=== PATIENT | male | born 1975 | race Caucasian/White ===

== ENCOUNTER 2018-05-14 08:51 | Emergency (ER) | payer BC ==
--- NOTE | 2018-05-14 09:19 | EDM.PDOC ---
ED HPI GENERAL MEDICAL PROBLEM - General Stated Complaint: CHEST PAIN Time Seen by Provider: 05/14/18 09:00 - History of Present Illness INITIAL COMMENTS - FREE TEXT/NARRATIVE: pt c/o dull right sided non radiating chest pain, worsened with movement and deep breathing since yesterday morning at times he feels it very sharp, pt denies cough SOB or any other associated res or CV sx , denies also leg swelling and pain also Hx of truama and Hx of DVT. right side chest Pain Score (Numeric/FACES): 2 - Related Data Allergies Allergy/AdvReac Type Severity Reaction Status Date / Time No Known Allergies Allergy Verified 05/14/18 09:22 Home Meds: Home Meds . [Unable to Verify Home Med List] 05/14/18 [History] ED ROS GENERAL - Review of Systems Review Of Systems: See Below Constitutional: Reports: No Symptoms HEENT: Reports: No Symptoms Respiratory: Reports: Pleuritic Chest Pain. Denies: Shortness of Breath, Wheezing, Cough Cardiovascular: Reports: No Symptoms. Denies: Dyspnea on Exertion, Lightheadedness, Syncope GI/Abdominal: Reports: No Symptoms Musculoskeletal: Reports: No Symptoms Skin: Reports: No Symptoms Neurological: Reports: No Symptoms ED EXAM, GENERAL - Physical Exam Exam: See Below Exam Limited By: No Limitations General Appearance: Alert, No Apparent Distress Throat/Mouth: Normal Oropharynx Head: Atraumatic, Normocephalic Neck: Normal Inspection, Supple, Non-Tender Respiratory/Chest: No Respiratory Distress, Lungs Clear, Normal Breath Sounds Cardiovascular: Normal Peripheral Pulses, Regular Rate, Rhythm, No Edema GI/Abdominal: Normal Bowel Sounds, Soft, Non-Tender Back Exam: Normal Inspection Extremities: Normal Inspection, No Pedal Edema, Other (no calf tendernss. ) Neurological: Alert, Oriented, CN II-XII Intact, Normal Gait Course - Vital Signs Text/Narrative:: labs/ xray/CT results were explained to pt. there is no signs of PE. pt has pleuritic type of chest pain and supportive mng was recommended. OTC Motrin and follow up with PCP in 1 week if continue with recurrent pain. Last Recorded V/S: Last Vital Signs Temp 36.9 C 05/14/18 08:51 Pulse 57 L 05/14/18 08:51 Resp 20 03/18/19 08:51 BP 127/90 05/14/18 08:51 Pulse Ox 99 05/14/18 08:51 - Orders/Labs/Meds Orders: Active Orders 24 hr Category Date Time Status Ang Chest [CT] Stat Exams 05/14/18 10:06 Taken Chest 1V Frontal [CR] Stat Exams 05/14/18 09:20 Taken Labs: Laboratory Tests 05/14/18 05/14/18 05/14/18 Range/Units 09:30 09:30 09:30 WBC 4.7 (4.5-12.0) X10-3/uL RBC 4.50 (4.30-5.75) x10(6)uL Hgb 14.4 (13.5-17.8) g/dL Hct 41.5 (30.0-51.3) % MCV 92.2 (80-96) fL MCH 32.1 (27.7-33.6) pg MCHC 34.8 (32.2-35.4) g/dL RDW 12.5 (11.5-15.5) % Plt Count 326 (125-369) X10(3)uL MPV 6.5 L (7.4-10.4) fL Neut % (Auto) 53.1 (46-82) % Lymph % (Auto) 32.6 (13-37) % [place] % (Auto) 9.3 (4-12) % Eos % (Auto) 4 (1.0-5.0) % Baso % (Auto) 1 (0-2) % Neut # (Auto) 2.5 (1.6-8.3) # Lymph # (Auto) 1.5 (0.6-5.0) # [place] # (Auto) 0.4 (0.0-1.3) # Eos # (Auto) 0.2 (0.0-0.8) # Baso # (Auto) 0.1 (0.0-0.2) # D-Dimer, Quantitative 0.70 H (0.0-0.59) mg/LFEU Sodium 139 (135-145) mmol/L Potassium 4.2 (3.5-5.3) mmol/L Chloride 102 (100-110) mmol/L Carbon Dioxide 29 (21-32) mmol/L BUN 14 (7-18) mg/dL Creatinine 1.2 (0.70-1.30) mg/dL Est Cr Clr Drug Dosing TNP Estimated GFR (MDRD) > 60 (>60) BUN/Creatinine Ratio 11.7 (9-20) Glucose 113 (80-116) mg/dL Calcium 9.0 (8.6-10.2) mg/dL Total Bilirubin 0.6 (0.1-1.3) mg/dL AST 30 H (5-25) IU/L ALT 38 H (12-36) U/L Alkaline Phosphatase 70 (56-112) IU/L Troponin I (<0.017-0.056) ng/mL Total Protein 7.3 (6.0-8.0) g/dL Albumin 4.1 (3.5-5.2) g/dL Globulin 3.2 g/dL Albumin/Globulin Ratio 1.3 05/14/18 Range/Units 09:30 WBC (4.5-12.0) X10-3/uL RBC (4.30-5.75) x10(6)uL Hgb (13.5-17.8) g/dL Hct (30.0-51.3) % MCV (80-96) fL MCH (27.7-33.6) pg MCHC (32.2-35.4) g/dL RDW (11.5-15.5) % Plt Count (125-369) X10(3)uL MPV (7.4-10.4) fL Neut % (Auto) (46-82) % Lymph % (Auto) (13-37) % [place] % (Auto) (4-12) % Eos % (Auto) (1.0-5.0) % Baso % (Auto) (0-2) % Neut # (Auto) (1.6-8.3) # Lymph # (Auto) (0.6-5.0) # [place] # (Auto) (0.0-1.3) # Eos # (Auto) (0.0-0.8) # Baso # (Auto) (0.0-0.2) # D-Dimer, Quantitative (0.0-0.59) mg/LFEU Sodium (135-145) mmol/L Potassium (3.5-5.3) mmol/L Chloride (100-110) mmol/L Carbon Dioxide (21-32) mmol/L BUN (7-18) mg/dL Creatinine (0.70-1.30) mg/dL Est Cr Clr Drug Dosing Estimated GFR (MDRD) (>60) BUN/Creatinine Ratio (9-20) Glucose (80-116) mg/dL Calcium (8.6-10.2) mg/dL Total Bilirubin (0.1-1.3) mg/dL AST (5-25) IU/L ALT (12-36) U/L Alkaline Phosphatase (56-112) IU/L Troponin I < 0.017 L (<0.017-0.056) ng/mL Total Protein (6.0-8.0) g/dL Albumin (3.5-5.2) g/dL Globulin g/dL Albumin/Globulin Ratio Meds: Medications Discontinued Medications Generic Name Dose Route Start Last Admin Trade Name Freq PRN Reason Stop Dose Admin Ibuprofen 600 mg 05/14/18 09:20 05/14/18 09:24 Motrin PO 05/14/18 09:21 600 mg ONETIME ONE Administration Iopamidol 75 ml 05/14/18 10:08 05/14/18 10:38 Isovue-370 (76%) IV 05/14/18 10:09 75 ml ASDIRECTED ONE Administration Departure - Departure Time of Disposition: 11:16 Disposition: Home, Self-Care 01 Clinical Impression: Pleuritic chest pain - Discharge Information Referrals: Nestor Bowman MD [Primary Care Provider] - - My Orders Last 24 Hours: My Active Orders 05/14/18 09:20 Chest 1V Frontal [CR] Stat 05/14/18 10:06 Ang Chest [CT] Stat - Assessment/Plan Last 24 Hours: My Active Orders 05/14/18 09:20 Chest 1V Frontal [CR] Stat 05/14/18 10:06 Ang Chest [CT] Stat
[2018-05-14] MEDS ORDERED: Ibuprofen 600 MG Tab PO ONE (09:20)
[2018-05-14] MEDS ORDERED: Iopamidol 755 Mg/ML 75 ML Bottle IV ONE (10:08)
--- NOTE | 2018-05-14 12:01 | CT ---
INDICATION: Right-sided chest pain with minimally increased D-dimer (0.70 - normal range 0.0 - 0.59). No shortness of breath. Chest pain began at 0400 hours on Monday. It is a 2 on a scale of 1-10. COMPUTERIZED TOMOGRAPHY ANGIOGRAPHY OF THE CHEST WITH CONTRAST: Spiral 1.25 mm axial sections were obtained through the chest with 75 mL Isovue 370 at 3.3 mL/ second, with sagittal and coronal reconstructions, 05/14/18 - no comparisons. Total exam DLP = 622.16 mGy-cm. No evidence of active infiltrate or effusion was seen. There is some irregular pleural thickening in the posterior upper lung puente - upper lobe areas bilaterally, likely on the basis of previous inflammatory disease. It does not appear to be calcified to strongly suggest asbestosis - correlate clinically. No nodular masses were identified in the lungs. The heart appears to be near the upper limits of normal in size with no evidence of pericardial effusion. The upper abdomen included on the study revealed no gross abnormalities. No mediastinal masses were identified. Mediastinal lymphadenopathy is mild to moderate, of questionable significance, likely nonspecific. The largest lymph node was approximately 12 mm at the lateral aortopulmonary window and precarinal node was noted to be approximately 15 mm - correlate clinically. No evidence of pulmonary emboli could be identified. There are some hypertrophic changes anteriorly off mid to lower vertebral bodies , mostly of mild degree. IMPRESSION: 1. No evidence of pulmonary emboli. 2. No definite active infiltrate or effusion. 3. Minimal pleural thickening - scarring may be present, etiology indeterminate. Report was called to Dr. Rutledge at 1112 hours on 05/14/18. [facility] MED[facility] CENTERChandu
--- NOTE | 2018-05-14 15:57 | CR ---
INDICATION: Chest pain. CHEST: An AP upright portable view of the chest was obtained 05/14/18 - no comparisons. The heart is normal in size and shape. Overlying EKG leads are noted. Mediastinum was unremarkable. An active infiltrate or effusion was not identified. IMPRESSION: No acute process - no definite active disease. MTDD
== END 2018-05-14 11:50 | disposition home or self-care (01) ==
LOC: FB.ED 08:51
DX: R07.81 Pleurodynia (principal); Z86.718 Personal history of other venous thrombosis and embolism
CPT/HCPCS: 36415; 71045; 71275; 80053; 84484; 85025; 85379; 93005; 99285; A9270; Q9967

== ENCOUNTER 2023-01-31 06:30 | Day surgery (SDC) | payer BC, OTHER ==
[~2023-01-31 06:30] MED LIST: Lactated Ringers 1,000 ML IV SCH; Sodium Chloride 0.9% 10 ML Syringe FLUSH PRN
[2023-01-31] MEDS ORDERED: Midazolam 1 MG/ML 2 ML SDV IV ONE (06:31)
[2023-01-31] MEDS ORDERED: fentaNYL 100 MCG/2 ML SDV IV ONE (06:31)
[2023-01-31] MEDS ORDERED: Propofol 200 MG/20 ML SDV IV ONE (06:31)
[2023-01-31] MEDS ORDERED: Simethicone Drops 40 MG/0.6 ML 30 ML Bottle PO ONE (07:30)
== END 2023-01-31 08:50 | disposition home or self-care (01) ==
LOC: FB.SDS 06:30
PROVIDERS: ATTEND Surgery
DX: Z12.11 Encounter for screening for malignant neoplasm of colon (principal); K63.5 Polyp of colon; K57.30 Diverticulosis of large intestine without perforation or abscess without bleeding; F32.A Depression, unspecified; F41.9 Anxiety disorder, unspecified; E78.5 Hyperlipidemia, unspecified; F17.210 Nicotine dependence, cigarettes, uncomplicated; Z79.899 Other long term (current) drug therapy; Z80.0 Family history of malignant neoplasm of digestive organs
CPT/HCPCS: 00811; 45384; 88305; A9270; J2250; J2704; J3010; J7120